=== PATIENT | female | born 1970 | race African-American/Black ===

== ENCOUNTER 2016-11-30 00:03 | Emergency (ER) | payer SELFPAY ==
[~2016-11-30] VITALS: Ht 170.2 cm; Wt 89.4 kg
[~2016-11-30 00:03] MED LIST: AMLO10TA2 PO
[2016-11-30 02:35] VITALS: BP 140/92
== END 2016-11-30 03:00 | disposition home or self-care (01) ==
LOC: ER 00:03
DX: I10 Essential (primary) hypertension (principal); F17.210 Nicotine dependence, cigarettes, uncomplicated; Z76.0 Encounter for issue of repeat prescription; Z88.0 Allergy status to penicillin; Z79.899 Other long term (current) drug therapy

== ENCOUNTER 2018-09-05 15:16 | Inpatient (IN) | payer MEDICAID | END 2018-09-06 18:30 | disposition home health service (06) | LOC: ER 15:16 → WEST WING 23:19 ==

== ENCOUNTER → 2018-12-31 | Outpatient (CLI) | payer MEDICAID ==
[~2018-12-31] MED LIST changes: +AMLO10TA13 PO; -AMLO10TA2 PO; +DOCU100C8 PO; +FER325T PO
== END | disposition home or self-care (01) ==
LOC: LAB 15:00
PROVIDERS: ATTEND Specialist
DX: N92.0 Excessive and frequent menstruation with regular cycle (principal); N80.9 Endometriosis, unspecified; N93.9 Abnormal uterine and vaginal bleeding, unspecified

== ENCOUNTER 2020-02-25 18:08 | Emergency (ER) | payer MEDICAID ==
[~2020-02-25] VITALS: Ht 167.6 cm; Wt 85.3 kg
[2020-02-25 18:20] VITALS: BP 145/98
== END 2020-02-25 19:08 | disposition home or self-care (01) ==
LOC: ER 18:08
DX: T88.7XXA Unspecified adverse effect of drug or medicament, initial encounter (principal); T46.1X5A Adverse effect of calcium-channel blockers, initial encounter; M79.89 Other specified soft tissue disorders; M25.572 Pain in left ankle and joints of left foot; I10 Essential (primary) hypertension; Y92.89 Other specified places as the place of occurrence of the external cause

== ENCOUNTER 2020-03-18 05:57 | Inpatient (IN) | payer MEDICAID ==
[2020-03-14 13:23] LABS: Basophils # (auto) 0.1 10 ^3/uL (0-0.2); Eosinophils # (auto) 0 10 ^3/uL (0-0.8); White Blood Cell 5.4 10^3/uL (4.4-10.8)
[2020-03-14 13:25] LABS: Basophils % (auto) 1.3 % (0.0-2.0); Eosinophils % (auto) 0.8 % (0.0-7.0); Hematocrit 33.6 % (36.0-46.0); Hemoglobin 10.8 g/dL (12.2-16.2); Lymphocytes # (auto) 1.8 10 ^3/uL (0.4-5.4); Lymphocytes % (auto) 33.9 % (10.0-50.0); Mean Corpuscular Hemoglobin 25.4 pg (28.0-32.0); Mean Corpuscular Volume 79.3 fL (80.0-100.0); Monocytes # (auto) 0.5 10 ^3/uL (0-1.3); Monocytes % (auto) 9.8 % (0.0-12.0); Neutrophils # (auto) 2.9 10 ^3/uL (1.6-8.6); Neutrophils % (auto) 54.2 % (37.0-80.0); Platelet Count (auto) 359 10^3/uL (140-450); Red Blood Cells 4.23 10^6/uL (4.0-5.20); Red Cell Distribution Width 16.9 % (11.8-14.3)
[2020-03-14 13:30] LABS: Urine Bacteria FEW /hpf (None Seen); Urine Blood Negative /uL (Negative); Urine Hyaline Cast FEW /lpf (0 - 2); Urine Specific Gravity 1.017 (1.001-1.035); Urine WBC <1 /hpf (0 - 5)
[2020-03-14 13:39] LABS: INR 0.97 (0.9-1.15); Partial Thromboplastin Time 27.6 sec (23.0-31.2)
[2020-03-14 13:54] LABS: Potassium 3.9 mmol/L (3.5-5.1)
[2020-03-14 14:01] LABS: Albumin 3.4 g/dL (3.4-5.0); BUN/Creatinine Ratio 14.3; Bilirubin, Total 0.2 mg/dL (0.2-1.0); Calcium 8.8 mg/dL (8.5-10.1); Total Protein 7.3 g/dL (6.4-8.2)
[~2020-03-18] VITALS: Ht 170.2 cm; Wt 116.5 kg
[~2020-03-18 05:57] MED LIST changes: -AMLO10TA13 PO; -DOCU100C8 PO; -FER325T PO; +HYDR25TA4 PO; +LOSA25TA38 PO
[2020-03-18] MEDS ORDERED: METHYLENE BLUE 0.5% 5MG/ML 10ml AMP IV ONE (06:56)
[2020-03-18] MEDS ORDERED: CONJ ESTROGENS 0.625MG/GM VAG CRM 30GM PV ONE (06:56)
[2020-03-18] MEDS ORDERED: ceFAZolin 1GM/50ML 100 ML IV ONE (07:42)
[2020-03-18] MEDS ORDERED: GENTAMICIN SULF 80 MG/2 ML VIAL ONE (07:50)
[2020-03-18] MEDS ORDERED: METOCLOPRAMIDE HCL 5MG/ml INJ 2ml VIAL IV ONE (07:50)
[2020-03-18] MEDS ORDERED: CLINDAMYCIN 900MG IV 50 ML IV ONE ×2 (07:50→11:00)
[2020-03-18] MEDS ORDERED: LIDOCAINE 1% (LOCAL ANESTH.) PF 5ml SDV ONE (07:53)
[2020-03-18] MEDS ORDERED: SUCCINYLCHOLINE CHLORIDE 20 MG/ML 10ML VIAL IV ONE (07:54)
[2020-03-18] MEDS ORDERED: MIDAZOLAM HCL 1MG/1ML-2 ML VIAL ONE (07:57)
[2020-03-18] MEDS ORDERED: KETOROLAC TROMETH 60MG/2ML VIAL ONE (07:58)
[2020-03-18] MEDS ORDERED: ROCURONIUM 10MG/ML 10ML VIAL IV ONE ×2 (08:01→08:02)
[2020-03-18] MEDS ORDERED: PROPOFOL 10 MG/ML 20 ML IV ONE (08:01)
[2020-03-18] MEDS ORDERED: fentaNYL CITRATE 100 MCG/2 ML VL ONE (08:20)
[2020-03-18] MEDS ORDERED: MEPERIDINE HCL (25 MG/ML) 1ML VIAL ONE (09:18)
[2020-03-18] MEDS ORDERED: hydrALAZINE HCL 20 MG/ML VL IV PRN (09:30)
[2020-03-18] MEDS ORDERED: ONDANSETRON HCL 4 MG/2 ML VIAL IV PRN (09:30)
[2020-03-18] MEDS ORDERED: NALOXONE HCL 0.4 MG/ML VIAL IV PRN (09:30)
[2020-03-18] MEDS ORDERED: HYDROmorphone HCL 2 MG/ML VL IV PRN (09:30)
[2020-03-18] MEDS ORDERED: hydrALAZINE HCL 20 MG/ML VL ONE (09:47)
[2020-03-18] MEDS ORDERED: GLYCOPYRROLATE 0.2 MG/ML 1ML VIAL ONE (10:20)
[2020-03-18] MEDS ORDERED: NEOSTIGMINE 1 MG/ML INJ (10mg/10ML VIAL) ONE (10:24)
[2020-03-18] MEDS: LACTATED RINGER'S 1,000 ML IV SCH (11:00)
[2020-03-18] MEDS ORDERED: ACETAMINOPHEN IV 100 ML IV PRN (11:00)
[2020-03-18] MEDS ORDERED: IOHEXOL 300 MG/ML 100ML BOTTLE IJ ONE (11:33)
[2020-03-18] MEDS: HYDROmorphone HCL 2 MG/ML VL IV PRN ×4 (11:35→21:44)
[2020-03-18] MEDS: ONDANSETRON HCL 4 MG/2 ML VIAL IV PRN ×2 (11:35→21:44)
[2020-03-18 13:41] VITALS: BP 113/70
[2020-03-18 17:00] VITALS: BP 115/72
--- NOTE | 2020-03-18 18:39 | NUR ---
PT ADMITTED FROM OR, VAGINAL HYSTERECTOMY. TRANSFERRED TO UNIT VIA HOSP. BED. PT SLEEPING BUT RESPONDS TO QUESTIONS. BRANDON PAD IN PLACE NO BLEEDING, GRAVES IN PLACE APPEARS PATENT URINE YELLOW CLEAR. IV DILAUDID GIVEN FOR PAIN 12/20. PT A/O 'S 4 ALL LOBES CLEAR, ABD BS PRESENT. IV X'S [address] RT FA ET HAND. DENIES ANY NEEDS. ORIENTED TO ROOM ET REMOTE. Addendum: 03/18/20 at 1854 by Reg 6 RN KEEP GRAVES IN PER PHYSICIAN'S REQUEST. DO NOT DC ON 03/19/20, USELESS PHYSICIAN STATES.
--- NOTE | 2020-03-18 19:50 | NUR ---
Opening Shift Note Assumed care of patient, awake and alert. No S/S of distress/SOB or pain. Patent instructed to call if bleeding is noted on pad. patient verbalized understanding reports no bleeding. Instructed on POC and to call for assist PRN, will continue to monitor for changes Q1hr and PRN. Bed in low position and call light within reach. fall precautions in place
[2020-03-18 20:00] VITALS: BP 126/89
--- NOTE | 2020-03-18 21:24 | NUR ---
Incentive Spirometer Patient educated on how to use IS patient verbalized understanding.
--- NOTE | 2020-03-18 21:24 | NUR ---
pATIENT AMBULATED TO THE RESTROOM WITH STEADY GAIT. PATIENT HAD NO BM. PATIENT PAD HAD MINIMAL/ DIME SIZE AMOUNT OF DRY DARK BLOOD ON PAD. NEW PAD APPLIED PER PATIENT REQUEST. PATIENT ASSISTED BACK IN BED CALL LIGHT WITHIN REACH AND FALL PRECAUTIONS IN PLACE.
[2020-03-18 22:00] VITALS: BP 131/85
[2020-03-19] MEDS: LACTATED RINGER'S 1,000 ML IV SCH ×4 (00:28→20:20)
--- NOTE | 2020-03-19 00:55 | NUR ---
ultrasound at bedside
[2020-03-19] MEDS: ONDANSETRON HCL 4 MG/2 ML VIAL IV PRN (03:58)
[2020-03-19] MEDS: HYDROmorphone HCL 2 MG/ML VL IV PRN (03:58)
[2020-03-19 05:00] VITALS: BP 116/90
[2020-03-19 05:33] LABS: Basophils # (auto) 0 10 ^3/uL (0-0.2); Eosinophils # (auto) 0 10 ^3/uL (0-0.8); Lymphocytes # (auto) 1.5 10 ^3/uL (0.4-5.4); Nucleated Red Blood Cells % 0.1 %; Red Blood Cells 3.79 10^6/uL (4.0-5.20)
[2020-03-19 05:35] LABS: Basophils % (auto) 0.5 % (0.0-2.0); Eosinophils % (auto) 0.2 % (0.0-7.0); Hemoglobin 9.9 g/dL (12.2-16.2); Lymphocytes % (auto) 17.9 % (10.0-50.0); Mean Corpuscular Hemoglobin 26.2 pg (28.0-32.0); Mean Corpuscular Hgb Conc. 33.1 g/dL (32.0-36.0); Monocytes # (auto) 0.4 10 ^3/uL (0-1.3); Monocytes % (auto) 5.2 % (0.0-12.0); Neutrophils # (auto) 6.5 10 ^3/uL (1.6-8.6); Neutrophils % (auto) 76.2 % (37.0-80.0); Platelet Count (auto) 342 10^3/uL (140-450); Red Cell Distribution Width 16.7 % (11.8-14.3); White Blood Cell 8.5 10^3/uL (4.4-10.8)
[2020-03-19 06:10] LABS: Albumin 2.7 g/dL (3.4-5.0); BUN/Creatinine Ratio 11.7; Potassium 3.5 mmol/L (3.5-5.1)
[2020-03-19 06:12] LABS: Bilirubin, Total 0.4 mg/dL (0.2-1.0); Total Protein 6.5 g/dL (6.4-8.2)
--- NOTE | 2020-03-19 06:35 | NUR ---
patient rounds patient resting in bed denies sob distress or pain. iv is intact and patent, Michelle catheter is intact and patent , draining. NO blood noted on patient pad. Bed in low position and call light within reach.
--- NOTE | 2020-03-19 07:23 | NUR ---
REPORT GIVEN TO DAYSHIFT RN PATIENT DENIES SOB DISTRESS OR PAIN
--- NOTE | 2020-03-19 08:00 | NUR ---
Opening Shift Note Assumed care of patient, awake, alert and oriented X4. No S/S of distress/SOB, complains of lower abdominal pain, 8/10, informed will medicate with prescribed pain mediation. IV X2, right antecubital, 20 gauge patent and saline locked, right hand, 20 gauge, patent and infusing LR @ 150 ml/hr. Abdominal binder in place. Bilateral lower extremity SCD'c in place. Instructed on POC and to call for assist PRN, verbalized understanding. Bed locked, in lowest position, call light within reach, will continue to monitor for changes Q1hr and PRN.
--- NOTE | 2020-03-19 08:45 | NUR ---
ROUNDS Dr Peterson at bedside, removed vaginal packing. New orders received and followed through. Patient updated on plan of care, verbalized understanding.
[2020-03-19 09:00] VITALS: BP 140/77
[2020-03-19] MEDS: HYDROcodone-ACET 10/325MG TAB PO PRN ×3 (09:23→21:42)
--- NOTE | 2020-03-19 10:15 | NUR ---
ROUNDS Dr Pennington at bedside for rounds, new orders received and followed through. Patient updated on plan of care, verbalized understanding.
--- NOTE | 2020-03-19 11:57 | NUR ---
Michelle catheter dc'd Order to discontinue Michelle catheter. Michelle dc'd with clean technique following deflation of balloon. Patient tolerated well with no complaints of pain. Continue care.
[2020-03-19 13:00] VITALS: BP 141/90
[2020-03-19 17:00] VITALS: BP 134/74
--- NOTE | 2020-03-19 19:17 | NUR ---
Care endorsed to LISA Hall, night nurse.
--- NOTE | 2020-03-19 19:25 | NUR ---
Opening Shift Note Assumed care of patient, awake, alert and oriented X4. No S/S of distress/SOB, no pain noted at this time. IV X2, right antecubital, 20 gauge patent and saline locked, right hand, 20 gauge. Abdominal binder in place. Bilateral lower extremity SCD'c in place. Instructed on POC and to call for assist PRN, verbalized understanding. Bed locked, in lowest position, call light within reach, will continue to monitor for changes Q1hr and PRN.
[2020-03-19] MEDS: DOCUSATE SOD 100 MG CAP PO SCH (21:41)
[2020-03-19 22:00] VITALS: BP 145/92
[2020-03-20] MEDS: HYDROcodone-ACET 10/325MG TAB PO PRN ×2 (01:43→08:54)
[2020-03-20] MEDS: LACTATED RINGER'S 1,000 ML IV SCH (03:00)
[2020-03-20 05:00] VITALS: BP 148/96
--- NOTE | 2020-03-20 07:41 | NUR ---
Opening Shift Note Assumed care of patient, awake, alert and oriented X4. No S/S of distress/SOB or pain. IV X2, right antecubital, 20 gauge patent and saline locked, right hand, 20 gauge, patent and infusing LR @ 150 ml/hr. Abdominal binder in place. Bilateral lower extremity SCD'c in place. Instructed on POC and to call for assist PRN, verbalized understanding. Bed locked, in lowest position, call light within reach, will continue to monitor for changes Q1hr and PRN.
[2020-03-20 09:00] VITALS: BP 140/85
[2020-03-20] MEDS: DOCUSATE SOD 100 MG CAP PO SCH (10:01)
--- NOTE | 2020-03-20 10:01 | NUR ---
ROUNDS Dr Pennington at bedside for rounds, new orders received and followed through. Patient updated on plan of care, verbalized understanding.
[2020-03-20 10:21] VITALS: BP 140/85
== END 2020-03-20 11:30 | disposition home or self-care (01) | DRG 513 ==
LOC: TELE 05:57 → EDSTATUS 08:15 → TELE-WESTW 13:55
PROVIDERS: ADMIT Specialist; ATTEND Specialist
PROC: 0TJB8ZZ Inspection of Bladder, Via Natural or Artificial Opening Endoscopic (ICD-10-PCS; 2020-03-18)
PROC: 0UT97ZZ Resection of Uterus, Via Natural or Artificial Opening (ICD-10-PCS; principal; 2020-03-18 07:55)
DX: N80.0 Endometriosis of uterus (principal); N92.0 Excessive and frequent menstruation with regular cycle; N94.6 Dysmenorrhea, unspecified; D64.9 Anemia, unspecified; I10 Essential (primary) hypertension; F17.200 Nicotine dependence, unspecified, uncomplicated; I70.8 Atherosclerosis of other arteries; K44.9 Diaphragmatic hernia without obstruction or gangrene; K57.30 Diverticulosis of large intestine without perforation or abscess without bleeding; K80.20 Calculus of gallbladder without cholecystitis without obstruction; Z80.0 Family history of malignant neoplasm of digestive organs; Z82.49 Family history of ischemic heart disease and other diseases of the circulatory system; Z82.61 Family history of arthritis; E66.9 Obesity, unspecified; Z68.41 Body mass index [BMI] 40.0-44.9, adult; Z88.0 Allergy status to penicillin; Z20.828 Contact with and (suspected) exposure to other viral communicable diseases; N13.2 Hydronephrosis with renal and ureteral calculous obstruction
CPT/HCPCS: 36415; 74018; 74177; 76775; 80053; 81001; 84702; 85025; 85610; 85730; 86850; 86900; 86901; G0378; J0131; J0330; J0690; J1885; J2250; J2405; J2704; J3490; J7060